=== PATIENT | female | born 1970 | race Caucasian/White ===

== ENCOUNTER 2018-11-28 20:37 | Emergency (ER) | payer BC ==
[~2018-11-28] VITALS: Ht 170.2 cm; Wt 101.2 kg
[2018-11-28] MEDS ORDERED: NORCO 5-325 TA1 EAC1 PO (21:23)
[2018-11-28] MEDS ORDERED: IBUPROFEN 800800 M1 PO (21:23)
[2018-11-28] MEDS ORDERED: ZOFRAN ODT4 MG PO (21:43)
[2018-11-28 21:45] VITALS: BP 159/86
== END 2018-11-28 21:45 | disposition home or self-care (01) ==
LOC: M.ERS 20:37
DX: H60.91 Unspecified otitis externa, right ear (principal)